=== PATIENT | female | born 1945 | race Caucasian/White ===

== ENCOUNTER → 2017-02-24 | Outpatient (REF) | payer MEDICARE, OTHER ==
[~2017-02-24] MED LIST: EFFE150C PO; GLIP10TA6 PO; LISI10TA4 PO; [UNRECOGNIZED DRUG - REMARK]
== END ==
LOC: M SFHCLERA 11:59
PROVIDERS: ATTEND Nurse Practitioner Family
DX: J02.9 Acute pharyngitis, unspecified (principal); R30.0 Dysuria
CPT/HCPCS: 81002; 87086; 87880; G0463

== ENCOUNTER 2017-06-02 16:10 | Emergency (ER) | payer MEDICARE, OTHER ==
[~2017-06-02] VITALS: Ht 157.5 cm; Wt 107.3 kg
[2017-06-02] MEDS ORDERED: GLIP10TA6 PO (16:24)
[2017-06-02] MEDS ORDERED: EFFE150C PO (16:24)
[2017-06-02] MEDS ORDERED: [UNRECOGNIZED DRUG - REMARK] (16:24)
[2017-06-02] MEDS ORDERED: LISI10TA4 PO (16:24)
[2017-06-02] MEDS ORDERED: ACETAMINOPHEN 325 MG TAB PO ONE (17:15)
[2017-06-02 17:45] LABS: BASO % 0.4 % (0.0-1.0); EOS # 0.2 10^3/uL (0.0-0.50); EOS % 3.4 % (0.0-3.0); IMMATURE GRANULOCYTE % 0.2 % (0-0); LYMPH % 36.8 % (24.0-44.0); MEAN CORPUSCULAR HEMOGLOBIN 29.8 pg (27.0-33.0); MEAN CORPUSCULAR HGB CONC 33.2 g/dl (32.0-36.5); MEAN CORPUSCULAR VOLUME 89.9 fl (80.0-96.0); MONO # 0.3 10^3/uL (0.0-0.8); MONO % 6.3 % (0.0-5.0); NEUTROPHILS # 2.8 10^3/uL (1.8-7.7); NEUTROPHILS % 52.9 % (36.0-66.0); PLATELET COUNT, AUTOMATED 197 10^3/uL (150-450); RED CELL DISTRIBUTION WIDTH 12.6 % (11.5-14.5); WHITE BLOOD COUNT 5.4 10^3/uL (4.0-10.0)
[2017-06-02 17:47] LABS: PLT CLUMPS? POS FLAG; POS COUNT POS FLAG
[2017-06-02 18:00] LABS: INR 0.93
--- NOTE | 2017-06-02 18:31 | REP ---
CT BRAIN WITHOUT CONTRAST: 06/02/2017: Clinical history: Headache, possible trauma. Findings: There are no prior pertinent studies. Soft tissue and bone windows are reviewed for each slice level. Ventricles are midline symmetric and without dilatation or displacement. Basal ganglia and the avilez-white junction differentiation are maintained. There is some heterogeneous white matter attenuation scattered in the white matter tracts suggesting some mild chronic small vessel ischemic disease. Cortical stripe is preserved. There is only minimal atrophy, age appropriate. There is no vascular territory infarct, hemorrhage, mass, mass effect or edema. Brainstem grossly intact. Cerebellum with mild atrophy. Basal cisterns intact. Mastoids and visualized sinuses clear. The skull base and calvarium show no fracture or focal lesion. Orbits and contents symmetric as seen. Some calcifications in the carotid siphons. Impression: 1. Mild atrophy with ventricular size in proportion and normal for age. 2. Heterogeneous low attenuation white matter changes suggesting chronic small vessel white matter ischemic disease of aging. 3. No acute infarct, hemorrhage, edema, mass or mass effect. 4. Sinuses, mastoids, skull base and calvarium visible were intact. Signed by Vito Minor MD 06/02/2017 08:12 P
[2017-06-02 18:40] VITALS: BP 179/74
== END 2017-06-02 18:44 | disposition home or self-care (01) ==
LOC: M ED 16:10
DX: H11.32 Conjunctival hemorrhage, left eye (principal); R58 Hemorrhage, not elsewhere classified; E11.9 Type 2 diabetes mellitus without complications; I10 Essential (primary) hypertension; Z79.899 Other long term (current) drug therapy

== ENCOUNTER → 2019-04-20 | Outpatient (CLI) | payer MEDICARE, OTHER ==
[~2019-04-20] MED LIST changes: -EFFE150C PO; +EFFE150C2 PO
--- NOTE | 2019-04-20 11:17 | REP ---
NUCLEAR GASTRIC EMPTYING SCAN: Following the oral administration of 1.1 millicuries technetium 99m sulfur colloid in two scrambled eggs and 6 ounces of water, multiple images of the upper abdomen are performed in the anterior and posterior projections for 90 minutes. The gastric activity is measured. At the end of 90 minutes, the stomach virtually completely empties with only a tiny amount of activity in the fundus of the stomach. T-1/2 is 26 minutes. IMPRESSION: Normal gastric emptying. Electronically Signed by Akshat Vergara MD 04/20/2019 01:17 P
== END ==
LOC: M RAD 08:17
PROVIDERS: ATTEND Internal Medicine Gastroenterology
DX: R68.81 Early satiety (principal); R12 Heartburn
CPT/HCPCS: 78264; A9541

== ENCOUNTER 2019-05-09 08:24 | Day surgery (SDC) | payer MEDICARE, OTHER ==
[~2019-05-09] VITALS: Ht 157.5 cm; Wt 113.4 kg
[2019-05-09] MEDS: NS 1,000 ML IV ONE (06:00)
[~2019-05-09 08:24] MED LIST changes: +ATEN25TA PO; +CETI10CA2 PO; +JANU100T PO; +LISI-538 PO; +MONT10TA2 PO; +NATU1TAB5 PO; +NOVO70VL SC; +RANI75TA52 PO
[2019-05-09] MEDS ORDERED: PROPOFOL 200 MG/20 ML VIAL As Ordered ONE (09:04)
[2019-05-09] MEDS ORDERED: LIDOCAINE 2% INJ 100 MG/5 ML SDV (FOR ANES.) As Ordered ONE (09:04)
--- NOTE | 2019-05-09 09:44 | ROOR ---
Patient Name: Iman Nix Procedure Date: 05/09/2019 9:30 AM Date of : 1945 Age: 74 Room: [facility] Gender: Female Note Status: Finalized Procedure: Upper Endoscopy + Biopsies Indications: Heartburn, Early satiety Providers: Nolan Linton MD Referring MD: HANNAH RODRIGUEZ MD Requesting Provider: Medicines: Monitored Anesthesia Care Complications: No immediate complications. Procedure: Pre-Anesthesia Assessment: - The heart rate, respiratory rate, oxygen saturations, blood pressure, adequacy of pulmonary ventilation, and response to care were monitored throughout the procedure. The Endoscope was introduced through the mouth, and advanced to the second part of duodenum. The upper GI endoscopy was accomplished without difficulty. The patient tolerated the procedure well. Findings: The Z-line was regular and was found 40 cm from the incisors. Multiple biopsies were obtained with cold forceps for evaluation to rule out Davis's Esophagus randomly at the gastroesophageal junction. No other significant abnormalities were identified in a careful examination of the stomach. Biopsies were taken with a cold forceps in the gastric antrum for Helicobacter pylori testing. The exam of the duodenum was otherwise normal. Impression: - Z-line regular, 40 cm from the incisors. - Multiple biopsies were obtained at the gastroesophageal junction. - Biopsies were taken with a cold forceps for Helicobacter pylori testing. - The examination was otherwise normal. Recommendation: - Patient has a contact number available for emergencies. The signs and symptoms of potential delayed complications were discussed with the patient. Return to normal activities tomorrow. Written discharge instructions were provided to the patient. - High fiber diet. - Discharge patient to home. - Follow an antireflux regimen. - Continue present medications. - Await pathology results. - Telephone GI clinic for pathology results in 1 week. - Return to referring physician. - The findings and recommendations were discussed with the patient's family. Nolan Linton MD Nolan Linton MD 05/09/2019 9:43:53 AM Electronically signed by Nolan Linton MD Number of Addenda: 0 Note Initiated On: 05/09/2019 9:30 AM Estimated Blood Loss: Estimated blood loss: none.
[2019-05-09 10:05] VITALS: BP 130/92
== END 2019-05-09 10:17 | disposition home or self-care (01) ==
LOC: M OPP 08:24
PROVIDERS: ATTEND Internal Medicine Gastroenterology
DX: R68.81 Early satiety (principal); R12 Heartburn; I71.4 Abdominal aortic aneurysm, without rupture; I35.9 Nonrheumatic aortic valve disorder, unspecified; I10 Essential (primary) hypertension; E11.9 Type 2 diabetes mellitus without complications; M19.90 Unspecified osteoarthritis, unspecified site; M54.5 Low back pain; G62.9 Polyneuropathy, unspecified; Z78.0 Asymptomatic menopausal state; J44.9 Chronic obstructive pulmonary disease, unspecified; R06.83 Snoring; R06.02 Shortness of breath; G47.30 Sleep apnea, unspecified; Z87.891 Personal history of nicotine dependence; Z79.4 Long term (current) use of insulin; Z79.899 Other long term (current) drug therapy

== ENCOUNTER → 2021-02-12 | Outpatient (CLI) | payer MEDICARE, OTHER ==
[~2021-02-12] MED LIST changes: -LISI-538 PO; +LISI10TA22 PO; -LISI10TA4 PO; +LISI20TA33 PO; +MONT10TA10 PO; -MONT10TA2 PO
[2021-02-12 17:56] LABS: FREE T4 0.68 NG/DL (0.76-1.46); THYROID STIMULATING HORMONE 0.259 uIU/ML (0.358-3.740)
[2021-02-12 17:57] LABS: MALB URINE SIEMENS 16.1 MG/L; MAU/CREAT RATIO 12.6 MCG/MG (0.0-30.0); TOTAL T3 102.6 NG/DL (60.0-181.0)
== END ==
LOC: M PLALAB 14:06
PROVIDERS: ATTEND Internal Medicine Endocrinology, Diabetes & Metabolism
DX: E11.65 Type 2 diabetes mellitus with hyperglycemia (principal)

== ENCOUNTER → 2021-05-06 | Outpatient (REF) | payer MEDICARE, OTHER | LOC: M LAB REF 12:29 | PROVIDERS: ATTEND Ophthalmology | DX: D22.122 Melanocytic nevi of left lower eyelid, including canthus (principal) ==

== ENCOUNTER 2022-03-29 14:13 | Emergency (ER) | payer MEDICARE, OTHER ==
[~2022-03-29] VITALS: Ht 152.4 cm; Wt 48.0 kg
[~2022-03-29 14:13] MED LIST changes: -MONT10TA10 PO; +MONT10TA97 PO
[2022-03-29] MEDS ORDERED: ACETAMINOPHEN 325 MG TAB PO ONE (16:35)
[2022-03-29 16:54] VITALS: BP 128/58
[2022-03-29 17:04] LABS: BASO % 0.4 % (0.0-1.0); EOS % 0.2 % (0.0-3.0); HEMATOCRIT 39.2 % (36.0-47.0); HEMOGLOBIN 12.4 g/dl (12.0-15.5); LYMPH # 1.9 10^3/uL (1.5-5.0); LYMPH % 36.9 % (24.0-44.0); MEAN CORPUSCULAR HGB CONC 31.6 g/dl (32.0-36.5); MEAN CORPUSCULAR VOLUME 91.6 fl (80.0-96.0); MONO # 0.4 10^3/uL (0.0-0.8); NEUTROPHILS # 2.8 10^3/uL (1.5-8.5); NEUTROPHILS % 55.3 % (36.0-66.0); PLATELET COUNT, AUTOMATED 211 10^3/uL (150-450); RED BLOOD COUNT 4.28 10^6/uL (4.00-5.40); WHITE BLOOD COUNT 5.1 10^3/uL (4.0-10.0)
[2022-03-29] MEDS ORDERED: AMOX875T2 PO (18:35)
[2022-03-29] MEDS ORDERED: AUGMENTIN 875 MG TAB PO ONE (18:45)
== END 2022-03-29 18:56 | disposition home or self-care (01) ==
LOC: M ED 14:13
DX: J32.9 Chronic sinusitis, unspecified (principal); I10 Essential (primary) hypertension; S09.90XA Unspecified injury of head, initial encounter; W22.8XXA Striking against or struck by other objects, initial encounter; Y92.89 Other specified places as the place of occurrence of the external cause; E11.9 Type 2 diabetes mellitus without complications; G47.30 Sleep apnea, unspecified; I25.10 Atherosclerotic heart disease of native coronary artery without angina pectoris; K21.9 Gastro-esophageal reflux disease without esophagitis; M19.90 Unspecified osteoarthritis, unspecified site; Z79.899 Other long term (current) drug therapy; Z79.4 Long term (current) use of insulin